=== PATIENT | male | born 1955 | race Caucasian/White ===

== ENCOUNTER 2020-09-17 15:32 | Emergency (ER) | payer MEDICARE, SELFPAY ==
[2020-09-17 15:33] VITALS: BP 152/111; PULSE 85; RESP 16; TEMP 36.6; O2SAT 96; BMI 28.8
[2020-09-17 15:35] VITALS: BP 152/111; PULSE 79; RESP 16; TEMP 36.6; O2SAT 97
[2020-09-17 16:00] VITALS: BP 220/109
--- NOTE | 2020-09-17 16:02 | EKG12_ITS ---
Test Reason : HYPERTENSION Blood Pressure : / mmHG Vent. Rate : 074 BPM Atrial Rate : 074 BPM P-R Int : 166 ms QRS Dur : 110 ms QT Int : 384 ms P-R-T Axes : 035 -39 011 degrees QTc Int : 426 ms Sinus rhythm with occasional Premature ventricular complexes Left axis deviation Abnormal ECG Confirmed by SALVATORE ROBERSON, DAR ([id number]), video news editor RODOLFO JARRETT ([id number]) on 09/19/2020 12:26:30 PM Referred By: BB Confirmed By:DAR CHASE MD
--- NOTE | 2020-09-17 16:03 | EDS_ITS ---
HPI History of Present Illness Chief Complaint: Hypertension Narrative Narrative: 65-year-old male presents with concern for elevated blood pressure. States that he has had a persistent headache over the past week. Got an at home blood pressure machine yesterday and his pressures been elevated above 200. Denies any chest pain or shortness of breath. States he was previously on antihypertensive therapy but has not had this since the beginning of coronavirus pandemic. [facility] Medical History Hypertension Home Medications amlodipine 5 mg PO DAILY #30 tab 09/17/20 [Rx Last Taken Unknown] Allergy/AdvReac Type Severity Reaction Status Date / Time No Known Allergies Allergy Verified 09/17/20 15:35 Surgical History H/O hernia repair Social History Smoking Status: Never smoker ROS ROS ED Constitutional Constitutional ED: Denies chills, fever(s) or sweats Eyes Eyes: Denies blurry vision, change in vision or diplopia ENT ENT ED: Denies rhinorrhea or sore throat Cardiovascular Cardiovascular: Denies chest pain, orthopnea, palpitations or racing heartbeat Respiratory/Chest Respiratory/Chest: Denies cough, dyspnea, dyspnea on exertion, orthopnea or sputum Gastrointestinal Gastrointestinal: Denies abdominal pain, constipation, diarrhea, melena, nausea or vomiting Genitourinary Genitourinary ED: Denies dysuria, hematuria or urinary frequency Musculoskeletal Musculoskeletal: Denies arthralgias, myalgias or neck pain Integumentary Denies rash Neurologic Neurologic: Reports headache(s); Denies paresthesias or weakness Psychiatric Psychiatric: Denies anxiety or depression Hematologic/Lymphatic Hematologic/Lymphatic: Denies easy bleeding or easy bruising Allergic/Immunologic Allergic/Immunologic ED: Denies mouth swelling or tongue swelling EXAM Physical Exam Const Vital Signs: 09/17/20 15:33 09/17/20 15:35 09/17/20 15:58 Temperature 97.8 F 97.8 F Temperature Source Temporal Temporal Pulse Rate 85 79 Respiratory Rate 16 16 Respiratory Effort Normal Non-Labored Respiratory Pattern Normal Blood Pressure 152/111 H 152/111 H Blood Pressure Mean 124 124 Pulse Ox 96 97 Oxygen Delivery Method Room Air Room Air 09/17/20 16:00 09/17/20 17:20 09/17/20 17:36 Temperature Temperature Source Pulse Rate 60 68 Respiratory Rate 18 18 Respiratory Effort Respiratory Pattern Blood Pressure 220/109 H 187/91 H 186/95 H Blood Pressure Mean 146 123 125 Pulse Ox 99 98 Oxygen Delivery Method Room Air Room Air Positive well nourished and well developed General Appearance ED: well developed HEENT Reports TM's clear and moist mucous membranes normocephalic and atraumatic Tympanic Membrane ED: Yes TM's clear Eyes PERRL and EOMs intact bilaterally Neck no lymphadenopathy, supple and no JVD Chest Wall inspection of chest normal Resp normal respiratory effort and clear to auscultation bilaterally Cardio regular rate, S1 normal heart sound, S2 normal heart sound and no murmurs Peripheral Pulses: pulses 2+ throughout GI soft to palpation, non-tender and non-distended Back/Spine no CVA tenderness and no thoracic nor lumbar tenderness Extremity normal to inspection General Extremety ED: Negative for edema or tenderness General Extremity: Negative for edema Neuro oriented x3, CN's II-XII intact bilaterally and no sensory deficits noted Sensorium / Orientation: alert Motor Exam: strength 5/5 throughout Psych mental status grossly normal Skin no rashes or lesions noted MDM MDM MDM Narrative Medical decision making narrative: Patient appears well nontoxic. No focal neurologic deficit. Troponin negative. No kidney dysfunction. EKG nonischemic. Patient given labetalol with minimal reduction. Was then given hydralazine with good reduction of his blood pressure. Patient will be started on amlodipine and advised to follow-up with primary care. Patient agreeable and discharged home in stable condition. Lab Data Attestation: I reviewed the patient's lab results. Labs: Laboratory Results - last 24 hr 09/17/20 16:15 Sodium 142 Potassium 3.9 Chloride 108 H Carbon Dioxide 27.0 Anion Gap 7 BUN 17 Creatinine 1.07 Estim Creat Clear Calc 63.49 Est GFR (MDRD) Af Amer 89 Est GFR (MDRD) Non-Af 73 BUN/Creatinine Ratio 15.9 Glucose 86 Calcium 8.9 Troponin I High Sens 5.8 Rhythm Strip Rhythm Strip: Sinus Rhythm Rate: 74 Ectopy: None EKG Initial EKG: Attestation: I personally reviewed and interpreted this EKG as follows: Interpretation: Sinus Rhythm Comments: Normal sinus rhythm at 74 bpm. OH interval 166 ms. QTC of 426 ms. PVC. No acute ischemia. Discharge Plan Triage Chief Complaint: Hypertension ED Provider: Sumeet Stevens Dx/Rx/DC Orders Instructions: ED Hypertension, Established Prescriptions: New amlodipine 5 mg tablet 5 mg PO DAILY Qty: 30 RF: 0 Primary Care Provider: Care Physician,No Primary Referrals: Dickson Fraga DO [NON-STAFF] - 2 Days Care Physician,No Primary [Primary Care Provider] - Disposition Disposition: Home, Self Care
--- NOTE | 2020-09-17 16:06 | NURSING ---
NO OLD EKGS
[2020-09-17] MEDS: Labetalol 100 MG/20 ML Vial 20 MG IV (16:18)
[2020-09-17 16:41] LABS: Anion Gap 7 (5-15); BUN 17 mg/dL (7-18); BUN/Creat Ratio 15.9 RATIO (10-20); Calcium,Total 8.9 mg/dL (8.5-10.1); Chloride 108 mmol/L (98-107); Creatinine, Serum 1.07 mg/dL (0.70-1.30); EST Glomerular Filtration Rate 73 mL/min (>60); Est Glom Filt Rate - Afr Amer 89 mL/min (>60); Estimated Creatinine Clearance 63.49 ml/min; Glucose 86 mg/dL (74-106); Potassium 3.9 mmol/L (3.5-5.1); Sodium Level 142 mmol/L (136-145); Troponin-I HS 5.8 pg/mL (3.0-78.5)
[2020-09-17 17:20] VITALS: BP 187/91; PULSE 60; RESP 18; O2SAT 99
[2020-09-17] MEDS: hydrALAZINE 20 MG/ML Vial 10 MG IV (17:24)
[2020-09-17 17:36] VITALS: BP 186/95; PULSE 68; RESP 18; O2SAT 98
[2020-09-17 18:35] VITALS: BP 160/84; PULSE 80; RESP 18; O2SAT 96
== END 2020-09-17 18:37 | disposition home or self-care (01) ==
PROVIDERS: Emergency Provider Emergency Medicine
DX: I10 Essential (primary) hypertension (principal)
CPT/HCPCS: 80048; 84484; 93005; 96374; 96375; 99284; A4216